=== PATIENT | male | born 1960 | race Caucasian/White ===

== ENCOUNTER 2021-08-17 07:57 | Outpatient (CLI) | payer OTHER, SELFPAY | END 2021-08-17 07:58 | disposition home or self-care (01) | LOC: ANHSURGERY 08:01 | PROVIDERS: PCP Family Medicine; Visit Provider Surgery | DX: K42.0 Umbilical hernia with obstruction, without gangrene (principal); Z01.818 Encounter for other preprocedural examination | CPT/HCPCS: 36415; 86850; 86900; 86901 ==

== ENCOUNTER 2021-08-18 00:06 | Day surgery (SDC) | payer OTHER, SELFPAY ==
[2021-05-13 11:42] VITALS: BMI 31.4
--- NOTE | 2021-05-13 11:57 | PC.NURSE ---
Report to the Outpatient Waiting Room, entrance under the green pavilion located off [facility], at time 0600 on date 05/20/21. OR Time: 0730. - You will be asked a series of questions to screen for COVID 19 for your protection. - A mask is required within the hospital. - No visitors are allowed at this time. Preoperative COVID Testing Requirements: No COVID Test needed if: (proof is required; if not received patient will have Rapid Test prior to entry) - Patient has received COVID Vaccine at least 14 days prior to procedure date or - Patient has positive COVID test result within last 90 days of surgery date. COVID Test needed if above criteria is not met Patients may have clear liquids (water, carbonated beverages, clear teas, apple juice) until 3 hours prior to surgery with a maximum of 20 ounces. - No food from midnight until time of surgery Take the following medications with a SIP of water the morning of surgery: NONE Medications to discontinue per physician: NAPROXEN Date to take last dose: PER DR. AGUILAR Please no make-up, nail macedonian, hairspray, perfume, deodorant, or body powder the day of surgery. No jewelry (including any body piercings) or valuables the day of surgery, leave them at home. Please take a shower or bath the night before, or the morning of, surgery with an antibacterial soap. Wear comfortable, loose fitting clothing. HIBICLENS SHOWER - Jewelry must be removed prior to entering the operating room. Rings and piercings that are not removed may be cut off. - The hospital will not accept responsibility for valuables. - Please leave all valuables, including medications, at home the day of surgery. If you are going home after surgery, a licensed pedicab driver must drive you home. - NO public transportation without another adult. - We recommend that an adult stay with you for 24 hours following discharge. - We also recommend that you do not drive, make important decision, drink alcoholic beverages, or take any drugs that were not prescribed by your health care provider for at least 24 hours after your discharge time. Follow any additional instructions given to you from your surgeon. Telephone instructions given to JULIO MACIEL and asked if any additional questions and then verbalized understanding. Patient advised to call surgeon office or pre surgery nurse liaison [phone] if any additional questions.
[2021-08-12 14:47] VITALS: BMI 33.5
--- NOTE | 2021-08-12 14:56 | PC.NURSE ---
Addendum entered by Araceli Wooten RN 08/12/21 15:01: patient instructed to take a shower with hibicleluciano Original Note: Report to the Outpatient Waiting Room, entrance under the green pavilion located off [address], at time _630_ on date _08/18/2021___. OR Time: __830__. - You and your visitor will be asked a series of questions to screen for COVID 19 for your protection. - Only one visitor is allowed at this time. - The patient visitor is requested to leave or wait in car when not with patient. - A mask is required within the hospital. Patients may have clear liquids (water, carbonated beverages, clear teas, apple juice) until 3 hours prior to surgery with a maximum of 20 ounces. - No food from midnight until time of surgery Take the following medications with a SIP of water the morning of surgery: metoprolol Medications to discontinue per physician N/A Date to take last dose__N/A Please no make-up, nail french, hairspray, perfume, deodorant, or body powder the day of surgery. No jewelry (including any body piercings) or valuables the day of surgery, leave them at home. Please take a shower or bath the night before, or the morning of, surgery with an antibacterial soap. Wear comfortable, loose fitting clothing. Children are encouraged to wear pajamas. - Jewelry must be removed prior to entering the operating room. Rings and piercings that are not removed may be cut off. - The hospital will not accept responsibility for valuables. - Please leave all valuables, including medications, at home the day of surgery. If you are going home after surgery, a licensed bottom hoop driver must drive you home. - NO public transportation without another adult. - We recommend that an adult stay with you for 24 hours following discharge. - We also recommend that you do not drive, make important decision, drink alcoholic beverages, or take any drugs that were not prescribed by your health care provider for at least 24 hours after your discharge time. For Pediatric surgeries, we recommend two adults accompany the child home (only one inside the building at this time). Follow any additional instructions given to you from your surgeon. If you or anyone in your household have experienced Covid symptoms in the past week, please notify your surgeon or the nurse liaison at the phone number below for possible testing. Telephone instructions given to patient Efren and asked if any additional questions and then verbalized understanding. Patient advised to call surgeon office or pre surgery nurse liaison [phone] if any additional questions.
[2021-08-18] VITALS (12 sets, daily range): BP systolic 116–140; BP diastolic 68–81; PULSE 51–65; RESP 14–20; TEMP 36.1–36.4; O2SAT 94–99
[2021-08-18] MEDS: ACETAMINOPHEN 500 MG TABLET 1000 MG PO (07:11)
--- NOTE | 2021-08-18 07:13 | PM.IMHP ---
H&P: HPI History of Present Illness Date/Time: 08/18/21 07:13 Chief Complaint: Umbilical hernia Narrative: 61 yo man presents for umbilical hernia repair. He denies any changes since last seen in office. Review of Systems Review of Systems: All systems reviewed & are unremarkable except as noted in HPI and below Constitutional: Constitutional: Denies chills, Denies fever(s), Denies headache(s) and Denies weight loss Eyes: Eyes: Denies change in vision ENT: Denies dizziness, Denies headache(s), Denies neck mass and Denies throat swelling Cardiovascular: Cardiovascular: Denies chest pain, Denies lightheadedness and Denies dyspnea Respiratory: Respiratory: Denies cough, Denies dyspnea and Denies wheezing Gastrointestinal: Gastrointestinal: Denies abdominal pain, Denies change in bowel habits, Denies nausea and Denies vomiting Genitourinary: Genitourinary: Denies hematuria and Denies dysuria Musculoskeletal: Musculoskeletal: Reports as per HPI Integumentary/Breasts: Skin/Breast: Reports as per HPI Neurologic: Denies dizziness and Denies headache(s) Allergic/Immunologic: Allergic/Immunologic: Denies throat swelling and Denies wheezing [facility] Past Medical History Medical History (Updated 08/17/21 @ 14:17 by Vern Jackman MD) Arthritis of both hands Chest pain on exertion cardiac cath; normal left ventricular function; 63% Mixed hyperlipidemia Obstructive sleep apnea, adult screening Surgical History Surgical History (Updated 07/06/21 @ 11:10 by Salina Gregorio CMA) History of cardiac cath Family History Family History Father Diabetes mellitus Family history of cardiovascular disease Malignant neoplasm of prostate Family history of coronary artery disease Sibling Diabetes mellitus Family history of cardiovascular disease Mother Family history of dementia Social History Social History Smoking status: Never smoker Alcohol intake: current Drinks per week: 10 Alcohol use details: Daily [place] drinker. Reports 2 shots a day. Substance use: never Substance use type: does not use Living arrangements: with family Spiritual care concerns: No Meds Home Medications and Allergies Home Medications Medication Instructions Recorded Confirmed Type fluticasone propionate 50 2 spray NASAL DAILY PRN 08/17/19 08/18/21 History mcg/actuation nasal spray,suspension zolpidem 5 mg PO HS PRN 05/13/21 08/18/21 History albuterol sulfate 90 mcg/actuation 2 inh INHALATION Q4H PRN #6.7 g 07/21/21 08/18/21 Rx aerosol inhaler atorvastatin 20 mg PO DAILY 08/12/21 08/18/21 History fluticasone propion-salmeterol 2 inh INHALATION DAILY 08/12/21 08/18/21 History [Advair Diskus] metoprolol succinate 50 mg PO DAILY 08/12/21 08/18/21 History Allergies Allergy/AdvReac Type Severity Reaction Status Date / Time No Known Allergies Allergy Verified 08/18/21 06:46 Exam Const: General: no acute distress and alert Orientation/consciousness: patient oriented x3 HENMT: Head: normocephalic and atraumatic Ears: hearing grossly normal bilaterally General nose exam: Normal nares present Mouth: Yes Normal oral and palatal mucosa present Eyes: Periorbital: periorbital findings normal Sclera: sclerae normal EOM: EOMs intact bilaterally Neck: Neck: normal visual inspection, no lymphadenopathy and trachea midline Chest: Chest palpation & inspection: normal inspection of the chest Resp: Effort & Inspection: normal respiratory effort Auscultation: clear to auscultation bilaterally Cardio: Jugular venous distension: no JVD Rate: regular rate Rhythm: regular rhythm Heart sounds: S1 normal heart sound present and S2 normal heart sound present Peripheral pulses: Peripheral pulses 2+ throughout GI: Inspection: normal to inspection GI Palp: Yes Soft to palpa
[2021-08-18] MEDS: LACTATED RINGERS 1,000 ML 30 ML IV CONT ×2 (07:15→10:23)
--- NOTE | 2021-08-18 07:15 | WPDHPUPDATE1 ---
History and Physical Update Update Date/Time: 08/18/21 07:15 History and Physical has been reviewed, including an updated exam of the patient. There are NO changes in the patient's condition. Risks, benefits, and alternatives have been discussed and questions answered. Patient agrees to proceed with procedure.
[2021-08-18] MEDS: KETOROLAC 15 MG/ML VIAL (*BKC) IV PUSH (07:21)
--- NOTE | 2021-08-18 08:05 | WPDANESEPPF ---
Anes - Initial Pre Proc Eval Procedure: Operation Date: 08/18/21 08:30 Proposed Procedures p Laparoscopic Umbilical Hernia Repair with Mesh, Davinci Assisted - Rip Franco DO Date/Time: 08/18/21 08:05 Surgeon: Rip Franco DO Pre Op Diagnosis: umbilical hernia Patient Data Age: 61 Gender: M Height: 1.8 m Weight: 109 kg Last Vital Signs Temp 97.6 F 08/18/21 07:28 Pulse 64 08/18/21 07:28 Resp 16 08/18/21 07:28 BP 140/77 08/18/21 07:28 Pulse Ox 98 08/18/21 07:28 Allergies Allergy/AdvReac Type Severity Reaction Status Date / Time No Known Allergies Allergy Verified 08/18/21 06:46 Home Medications Medication Instructions Recorded Confirmed Type fluticasone propionate 50 2 spray NASAL DAILY PRN 08/17/19 08/18/21 History mcg/actuation nasal spray,suspension zolpidem 5 mg PO HS PRN 05/13/21 08/18/21 History albuterol sulfate 90 mcg/actuation 2 inh INHALATION Q4H PRN #6.7 g 07/21/21 08/18/21 Rx aerosol inhaler atorvastatin 20 mg PO DAILY 08/12/21 08/18/21 History fluticasone propion-salmeterol 2 inh INHALATION DAILY 08/12/21 08/18/21 History [Advair Diskus] metoprolol succinate 50 mg PO DAILY 08/12/21 08/18/21 History Patient hx anesthesia problems: none Family hx anesthesia problems: none Results Review: All pre-operative results and documents have been reviewed as part of the pre-operative evaluation. [facility] Past Medical History Medical History (Updated 08/17/21 @ 14:17 by Vern Jackman MD) Arthritis of both hands Chest pain on exertion cardiac cath; normal left ventricular function; 63% Mixed hyperlipidemia Obstructive sleep apnea, adult screening Surgical History Surgical History (Updated 07/06/21 @ 11:10 by Salina Gregorio CMA) History of cardiac cath Family History Family History Father Diabetes mellitus Family history of cardiovascular disease Malignant neoplasm of prostate Family history of coronary artery disease Sibling Diabetes mellitus Family history of cardiovascular disease Mother Family history of dementia Social History Social History Smoking status: Never smoker Alcohol intake: current Drinks per week: 10 Alcohol use details: Daily [place] drinker. Reports 2 shots a day. Substance use: never Substance use type: does not use Living arrangements: with family Spiritual care concerns: No Anes - Eval Final PreProcedure Day of Procedure 08/18/21 08:05 Patient weight: obese Heart: regular rate and rhythm Lungs: clear to auscultation Airway: Mallampati scale class III Neurological: alert and oriented Last oral intake: >/= 8 hours ASA classification: III Emergent: no Anesthetic plan: proceed Anesthesia type and monitoring: general ETT and standard monitoring Results Review: All pre-operative results and documents have been reviewed as part of the pre-operative evaluation. Informed Consent: The patient's anesthetic plan and its attendant risks and benefits were discussed with the patient/family/POA. Questions were solicited and answers provided to the satisfaction of the patient/family/POA.
[2021-08-18] MEDS: ceFAZolin 2 GM/D5W 50 ML 2 GM/50 ML BAG IVPB (08:25)
--- NOTE | 2021-08-18 10:08 | W.PM.PROC2 ---
Procedure Note - Detailed Date of Procedure 08/18/21 Pre-op Diagnosis umbilical hernia Post-op Diagnosis Same Procedure Performed Laparoscopic umbilical Hernia Repair with Mesh, da Gadiel assisted Surgeon Rip Franco, Anesthesia General and Local (Exparel) Indications This is a 61-year-old man who presented with an umbilical hernia. He had noticed this several years ago and it had gradually become larger with time. He does notice some discomfort with activity. He was found to have a 1-2 cm reducible umbilical hernia on exam. Discussions were made with the patient about treatment options and decision was made to proceed with robotic assisted laparoscopic umbilical hernia repair with mesh. Findings Laparoscopic umbilical hernia repair was performed. A robotic transabdominal preperitoneal (rTAPP) approach was utilized. The patient was found to have a 1 cm umbilical hernia containing preperitoneal fat. A preperitoneal plane was created wide enough for mesh placement and the hernia sac and preperitoneal fat was reduced. The hernia defect was closed using 0 Stratafix running absorbable suture. A 10 cm x [address] mesh was then placed within the preperitoneal pocket and secured to the abdominal wall at the 4 corners using 3-0 Vicryl simple interrupted sutures. The peritoneum was then closed using 3-0 V lock running absorbable suture. No specimens were obtained for pathology. Description of Procedure Procedure as well as risks, benefits, and alternatives were discussed with the patient. Written consent was obtained and placed in chart prior to procedure. Patient was brought back to surgical suite. He was placed supine on operating table. Time-out was done to confirm patient and procedure. He was then intubated by the anesthesia department. A bump was placed under his left hip, and the bed was flexed slightly to extend the space between his costal margin and iliac crest. His abdomen was prepped and draped in sterile fashion using chlorhexidine prep. A 5 millimeter incision was made in the left upper quadrant, and a 5 millimeter Optiview trocar was advanced through the abdominal layers under direct visualization. Once inside the abdominal cavity, carbon dioxide insufflation was used to create a pneumoperitoneum. His abdomen was inspected. An 8 millimeter incision was made in the left lower quadrant, and an 8 millimeter robotic trocar was placed under direct visualization. Another 8 millimeter incision was made in the left lateral abdomen, and an 8 millimeter robotic trocar was placed under direct visualization. Exparel was infiltrated along the lateral abdominal ontiveros to perform a transversus abdominis plane block bilaterally. The 5 millimeter port was removed, the incision was extended to 12 millimeters, and a 12 millimeter air seal port was placed under direct visualization. A Bryson-Whaley cone was also used to place an 0-Vicryl simple interrupted suture at this trocar site. The robotic arms were brought up to the patient's bedside and secured to the ports. The camera and instruments were inserted, and I then moved over to the robotic console and took control of the camera and instruments. After careful thorough inspection of the abdominal cavity, I began my dissection at the hernia. A preperitoneal plane was dissected on the left lateral abdominal wall. This was continued medially until the hernia defect was encountered and then the hernia sac and preperitoneal fat was reduced. I then continued the dissection in the preperitoneal plane along the right lateral abdomen. I then measured the hernia size. The hernia measured 1 cm. The fascia was closed using an 0-Stratafix running suture in a vertical fashion. A Ventralight ST 15 cm x 10 cm mesh was then placed within the preperitoneal pocket. This was oriented vertically with the mesh centered on the hernia defect. The mesh was then secured at the 4 corners using 3-0 Vicryl simpl
[2021-08-18] MEDS: oxyCODONE HCL (*CRX) 5 MG TAB IR PO (11:55)
== END 2021-08-18 13:50 | disposition home or self-care (01) ==
PROVIDERS: PCP Family Medicine; Visit Provider Surgery
PROC: (CPT 49652; principal; 2021-08-18 08:30)
DX: K42.9 Umbilical hernia without obstruction or gangrene (principal); Z79.51 Long term (current) use of inhaled steroids; M19.90 Unspecified osteoarthritis, unspecified site; G47.33 Obstructive sleep apnea (adult) (pediatric); E78.2 Mixed hyperlipidemia; E66.9 Obesity, unspecified; Z68.33 Body mass index [BMI] 33.0-33.9, adult
CPT/HCPCS: 49652; S2900; 36415; 86850; 86900; 86901; A9270; C1781; C9290; J0330; J0690; J1100; J1170; J1885; J2250; J2405; J2710; J3010; J7120

== ENCOUNTER 2024-02-13 01:30 | Day surgery (SDC) | payer MEDICARE, SELFPAY ==
[2024-02-01 08:35] VITALS: BMI 32.4
[2024-02-13 09:34] VITALS: BP 141/92; PULSE 62; RESP 18; TEMP 36.3; O2SAT 99; BMI 32.1
[2024-02-13] MEDS: LACTATED RINGERS 1,000 ML 150 ML IV CONT (09:36)
--- NOTE | 2024-02-13 09:43 | WPDANESEPPF ---
Anes - Initial Pre Proc Eval Procedure: Operation Date: 02/13/24 10:30 Proposed Procedures p Colonoscopy - Maxx Roman MD Date/Time: 02/13/24 09:43 Surgeon: Maxx Roman MD Pre Op Diagnosis: Pers. hx. of colon polyps Patient Data Age: 63 Gender: M Height: 1.8 m Weight: 104.7 kg Last Vital Signs Temp 36.3 C L 02/13/24 09:34 Pulse 62 02/13/24 09:34 Resp 18 02/13/24 09:34 BP 141/92 H 02/13/24 09:34 Pulse Ox 99 02/13/24 09:34 O2 Del Method Room Air 02/13/24 09:34 Allergies Allergy/AdvReac Type Severity Reaction Status Date / Time No Known Allergies Allergy Verified 02/13/24 09:33 Home Medications Medication Instructions Recorded Confirmed Type albuterol sulfate 90 mcg/actuation 2 inh inhalation Q4H PRN shortness 07/21/21 02/13/24 Rx aerosol inhaler (Ventolin HFA) of breath or wheezing #6.7 grams aspirin 81 mg tablet,delayed 81 mg PO DAILY 12/01/21 02/13/24 History release metoprolol succinate 50 mg 50 mg PO DAILY 03/02/22 02/13/24 History tablet,extended release 24 hr atorvastatin 80 mg tablet 80 mg PO DAILY 03/03/22 02/13/24 History CPAP Supplies #1 ea 10/21/22 12/29/23 Rx zolpidem 10 mg tablet 10 mg PO QHS PRN sleep #30 tabs 04/12/23 02/13/24 Rx ezetimibe 10 mg tablet (Zetia) 10 mg PO DAILY 06/21/23 02/13/24 History Travel CPAP #1 ea 06/27/23 12/29/23 Rx CPAP Pressure Change #1 ea 12/29/23 12/29/23 Rx Patient hx anesthesia problems: none Family hx anesthesia problems: none Results Review: All pre-operative results and documents have been reviewed as part of the pre-operative evaluation. [facility] Past Medical History Medical History (Updated 02/13/24 @ 09:43 by Darius Dorado MD) Arthritis of both hands Chest pain on exertion cardiac cath; normal left ventricular function; 63% Mixed hyperlipidemia Obesity, Class I, BMI 30-34.9 Obstructive sleep apnea, adult screening Tear of medial meniscus of left knee Surgical History Surgical History H/O umbilical hernia repair w mesh davinci assisted 08/18/21 History of cardiac cath Family History Family History Father Diabetes mellitus Family history of cardiovascular disease Malignant neoplasm of prostate Family history of coronary artery disease Sibling Diabetes mellitus Family history of cardiovascular disease Mother Family history of dementia Social History Social History Smoking status: Never smoker Alcohol intake: current Drinks per week: 10 Alcohol use details: Daily [place] drinker. Reports 2 shots a day. Substance use: never Substance use type: does not use Lack of Transportation: No Lack of Food: Never True Current Housing: I Have Housing Concerned About Future Housing: No Difficulty Paying Gas/Electric Bills: No Difficulty Paying for Meds: No Currently Unemployed: No Education: Bachelor's Degree Difficulty w/ Childcare or Family Care: No Living arrangements: with family Spiritual care concerns: No Anes - Eval Final PreProcedure Day of Procedure 02/13/24 09:43 Patient weight: obese Heart: regular rate and rhythm Lungs: clear to auscultation Airway: Mallampati scale class II Neurological: alert and oriented Last oral intake: >/= 8 hours ASA classification: III Emergent: no Anesthetic plan: proceed Anesthesia type and monitoring: general GIVS and standard monitoring Results Review: All pre-operative results and documents have been reviewed as part of the pre-operative evaluation. Informed Consent: The patient's anesthetic plan and its attendant risks and benefits were discussed with the patient/family/POA. Questions were solicited and answers provided to the satisfaction of the patient/family/POA.
--- NOTE | 2024-02-13 09:59 | P.HP_ITS ---
History of Present Illness History of Present Illness Consent: Risks, benefits, and alternatives have been discussed and questions answered. Patient agrees to proceed with procedure. Chief complaint: Pers. hx. of colon polyps Narrative: Efren Novoa is a 63 year old male with colon polyp in 2019 Review of Systems Review of Systems: All systems reviewed & are unremarkable except as noted in HPI and below PMFSH Past Medical History Medical History (Updated 02/13/24 @ 10:02 by Maxx Roman MD) Arthritis of both hands Chest pain on exertion cardiac cath; normal left ventricular function; 63% Colon polyp Mixed hyperlipidemia Obesity, Class I, BMI 30-34.9 Obstructive sleep apnea, adult screening Tear of medial meniscus of left knee Surgical History Surgical History H/O umbilical hernia repair w mesh davinci assisted 08/18/21 History of cardiac cath Family History Family History Father Diabetes mellitus Family history of cardiovascular disease Malignant neoplasm of prostate Family history of coronary artery disease Sibling Diabetes mellitus Family history of cardiovascular disease Mother Family history of dementia Social History Social History Smoking status: Never smoker Alcohol intake: current Drinks per week: 10 Alcohol use details: Daily [place] drinker. Reports 2 shots a day. Substance use: never Substance use type: does not use Lack of Transportation: No Lack of Food: Never True Current Housing: I Have Housing Concerned About Future Housing: No Difficulty Paying Gas/Electric Bills: No Difficulty Paying for Meds: No Currently Unemployed: No Education: Bachelor's Degree Difficulty w/ Childcare or Family Care: No Living arrangements: with family Spiritual care concerns: No Meds Home Medications and Allergies Home Medications Medication Instructions Recorded Confirmed Type albuterol sulfate 90 mcg/actuation 2 inh inhalation Q4H PRN shortness 07/21/21 02/13/24 Rx aerosol inhaler (Ventolin HFA) of breath or wheezing #6.7 grams aspirin 81 mg tablet,delayed 81 mg PO DAILY 12/01/21 02/13/24 History release metoprolol succinate 50 mg 50 mg PO DAILY 03/02/22 02/13/24 History tablet,extended release 24 hr atorvastatin 80 mg tablet 80 mg PO DAILY 03/03/22 02/13/24 History CPAP Supplies #1 ea 10/21/22 12/29/23 Rx zolpidem 10 mg tablet 10 mg PO QHS PRN sleep #30 tabs 04/12/23 02/13/24 Rx ezetimibe 10 mg tablet (Zetia) 10 mg PO DAILY 06/21/23 02/13/24 History Travel CPAP #1 ea 06/27/23 12/29/23 Rx CPAP Pressure Change #1 ea 12/29/23 12/29/23 Rx Allergies Allergy/AdvReac Type Severity Reaction Status Date / Time No Known Allergies Allergy Verified 02/13/24 09:33 Vital Signs Vital Signs - 24 hr 02/13/24 09:34 Temperature 97.4 F L Pulse Rate 62 Respiratory Rate 18 Blood Pressure 141/92 H Pulse Oximetry 99 Oxygen Delivery Room Air Exam Const: General: comfortable and no acute distress HENMT: Face/Nose/Sinus: Normal nares present Eyes: General: appearance normal, both eyes and all related structures Neck: Neck: no JVD Resp: Auscultation: clear to auscultation bilaterally Cardio: Rate: regular rate Rhythm: regular rhythm GI: Inspection: non-distended GI Palp: Yes Soft to palpation Skin: General skin exam: normal color Neuro: General: gait normal Speech: normal speech Extrem: General: normal to inspection Psych: Mental Status: mental status grossly normal Assessment and Plan Assessment and plan (1) Colon polyp: Code(s): K63.5 - Polyp of colon Status: Acute Assessment and Plan: colonoscopy
[2024-02-13 10:17] VITALS: BP 111/74; PULSE 73; RESP 18; O2SAT 97
[2024-02-13 10:27] VITALS: BP 106/72; PULSE 68; RESP 18; O2SAT 97
[2024-02-13 10:37] VITALS: BP 136/83; PULSE 64; RESP 19; O2SAT 100
== END 2024-02-13 10:47 | disposition home or self-care (01) ==
PROVIDERS: PCP Family Medicine; Visit Provider Internal Medicine Gastroenterology
PROC: 0DJD8ZZ Inspection of Lower Intestinal Tract, Via Natural or Artificial Opening Endoscopic (ICD-10-PCS; CPT 45378; principal; 2024-02-13 10:30)
DX: Z12.11 Encounter for screening for malignant neoplasm of colon (principal); Z86.0100 Personal history of colon polyps, unspecified; G47.33 Obstructive sleep apnea (adult) (pediatric); E78.2 Mixed hyperlipidemia; E66.9 Obesity, unspecified; Z68.32 Body mass index [BMI] 32.0-32.9, adult; Z79.82 Long term (current) use of aspirin; Z79.51 Long term (current) use of inhaled steroids
CPT/HCPCS: G0105; J2704; J7120

== ENCOUNTER 2024-05-09 13:43 | Emergency (ER) | payer MEDICARE, SELFPAY ==
--- NOTE | ~2024-05-09 | XR_ITS ---
XR wrist RT min 3V 05/09/2024 14:16 Indication: Right wrist pain after fall Procedure: 4 views right wrist Comparison: No prior studies for comparison. Findings: No fracture, subluxation or dislocation. No significant soft tissue abnormality. No foreign bodies. 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 Impression: 1: No acute bone or joint abnormality. Reviewed, dictated and finalized at location A. CAL THERAPIST Impression: 1: No acute bone or joint abnormality.
[2024-05-09 14:02] VITALS: BP 117/72; PULSE 65; RESP 16; TEMP 36.3; O2SAT 97
--- NOTE | 2024-05-09 14:20 | ED.UPPEXIN ---
HPI - Extremity Injury (Upper) General Chief Complaint: Extremity Injury, Upper Stated Complaint: INJURED R WRIST Time Seen by Provider: 05/09/24 14:10 Source: patient Mode of arrival: ambulatory Limitations: no limitations History of Present Illness HPI narrative: Efren is a 64-year-old male patient presenting to the clinic today with complaints of a right wrist injury. 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 Is having pain to the right wrist. No obvious deformity noted Related Data Home Medications ?Medication ?Instructions ?Recorded ?Confirmed ?Last Taken ?Type aspirin 81 mg tablet,delayed 81 mg PO DAILY 12/01/21 02/13/24 02/12/24 History release metoprolol succinate 50 mg 50 mg PO DAILY 03/02/22 02/13/24 02/12/24 History tablet,extended release 24 hr atorvastatin 80 mg tablet 80 mg PO DAILY 03/03/22 02/13/24 02/12/24 History ezetimibe 10 mg tablet (Zetia) 10 mg PO DAILY 06/21/23 02/13/24 02/12/24 History Allergies Allergy/AdvReac Type Severity Reaction Status Date / Time No Known Allergies Allergy Verified 02/13/24 09:33 Review of Systems Review of Systems: Pertinent positives per HPI. Patient denies any fever, chills, rash, headache, visual changes, dizziness, cough, runny nose, sore throat, shortness of breath, chest pain, palpitations, nausea, vomiting, diarrhea, constipation, abdominal pain, or any urinary issues. [facility] Past Medical History Medical History Colon polyp Tear of medial meniscus of left knee Obesity, Class I, BMI 30-34.9 Chest pain on exertion cardiac cath; normal left ventricular function; 63% Obstructive sleep apnea, adult screening Arthritis of both hands Mixed hyperlipidemia Surgical History Surgical History H/O umbilical hernia repair w mesh davinci assisted 08/18/21 History of cardiac cath Family History Family History Father Diabetes mellitus Family history of cardiovascular disease Malignant neoplasm of prostate Family history of coronary artery disease Sibling Diabetes mellitus Family history of cardiovascular disease Mother Family history of dementia Social History Social History Smoking status: Never smoker Alcohol intake: current Drinks per week: 10 Alcohol use details: Daily Beauregard drinker. Reports 2 shots a day. Substance use: never Substance use type: does not use Lack of Transportation: No Lack of Food: Never True Current Housing: I Have Housing Concerned About Future Housing: No Difficulty Paying Gas/Electric Bills: No Difficulty Paying for Meds: No Currently Unemployed: No Education: Bachelor's Degree Difficulty w/ Childcare or Family Care: No Living arrangements: with family Spiritual care concerns: No Comments At the time of my signature, I reviewed and agree with the nursing past medical, surgical, social, and family history. There is no relevant family history pertinent to the patient complaint. Exam Narrative: General: Well-developed, well nourished, in no apparent distress Head: Normocephalic, atraumatic. Cardio: Regular rate and rhythm, s1 and s2 normal, no murmur appreciated. Resp: Clear to auscultation bilaterally, no rhonchi, rales, wheezing or rubs. Musculoskeletal: No deformity, tender to palpation over the dorsal wrist, pain with hyper extension and flexion of the right wrist, no pain with ulnar or radial deviation, grossly normal range of motion, muscle strength strong and equal, peripheral pulse strong, no edema, no cyanosis, normal gait and station Course Course Emergency Course: Portions of this record may have been created with voice recognition software. Level of Care: Express Care Visit Vital Signs Vital signs: Vital Signs Temperature 36.3 C L 05/09/24 14:02 Pulse Rate 65 05/09/24 14:02 Respiratory Rate 16 05/09/24 14:02 Blood Pressure 117/72 05/09/24 14:02 Pulse Oximetry 97 05/09/24 14:02 Temperature 36.3 C L 05/09/24 14:02 Pulse Rate 65 05/09/24 14:02 Respiratory Rate 16 05/09/24 14:02 Blood Pressure 117/72 05/09/24 14:02 Pulse Oximetry 97 05/09/24 14:02 Vital signs reviewed MDM - Extremity Injury (Upper) MDM Narrative Medical decision making narrative: At the time of visit patient is resting comfortably on the exam table. Patient appears to be nontoxic. Diagnostics: X-rays negative for any sign of fracture or malalignment of the right wrist. Plan: I suspect patient has a right wrist sprain. Evan wrap was applied. Supportive measures were discussed with the patient and they voiced understanding discharge instructions and agrees to treatment plan. Return precautions reviewed Differential Diagnosis Differential diagnosis: Likely sprain and strain of wrist and fracture of wrist Imaging Data Radiologist's impression: ITS Impressions Wrist X-Ray 05/09/24 14:20 Impression: 1: No acute bone or joint abnormality. Discharge Plan Discharge Clinical Impression: Right wrist sprain Qualifiers: Encounter type: initial encounter Qualified Code(s): S63.501A - Unspecified sprain of right wrist, initial encounter Patient Disposition: Home, Self-Care Condition: Stable Instructions: Antibiotic Form, Wrist Sprain (ED) Additional Instructions: X-rays negative for any sign of fracture or malalignment. Rest, ice, elevate, and wear evan wrap as directed Tylenol/motrin for pain as discussed. Follow up with your PCP if symptoms persist more than 1 week. Patient Language: Luxembourgish Prescriptions: No Action (DME) CPAP Supplies See Rx Instructions .Route .MEDSUPPLY Qty: 1 0RF Rx Instructions: Rx: Chin strap Dx: G47.33 Physician: Dr. Leti Corona DO [facility]zet[facility] [Zetia] 10 mg tablet 10 mg PO DAILY (DME) CPAP Pressure Change See Rx Instructions .Route .MEDSUPPLY Qty: 1 0RF Rx Instructions: Rx: Change pressure settings from 6-16 cm H2O to 6-18 cm H2O. Decrease EPR from 3 to 2. I already changed pressure settings wirelessly through [employer] Dx: G47.33 Physician: Dr. Leti Corona DO DME: [employer] aspirin 81 mg tablet,delayed release (DR/EC) 81 mg PO DAILY metoprolol succinate 50 mg tablet extended release 24 hr 50 mg PO DAILY albuterol sulfate [Ventolin HFA] 90 mcg/actuation HFA aerosol inhaler 2 inh inhalation Q4H PRN (Reason: shortness of breath or wheezing) Qty: 6.7 0RF atorvastatin 80 mg tablet 80 mg PO DAILY zolpidem 10 mg tablet 10 mg PO QHS PRN (Reason: sleep) Qty: 30 0RF (DME) Travel CPAP See Rx Instructions .Route .MEDSUPPLY Qty: 1 0RF Rx Instructions: Rx: [employer]med [employer] Travel CPAP 6-16 cm H2O with EPR of 3 Dx: G47.33 Follow-up/Referrals: Angelo Jackson MD [Primary Care Provider] - Time of Disposition: 14:27 Quality NIHSS Nursing Documentation ED NIHSS nursing documentation: reviewed/agree
== END 2024-05-09 14:29 | disposition home or self-care (01) ==
PROVIDERS: Emergency Provider Nurse Practitioner Family; PCP Family Medicine
DX: S63.501A Unspecified sprain of right wrist, initial encounter (principal); W19.XXXA Unspecified fall, initial encounter; E78.2 Mixed hyperlipidemia; M19.042 Primary osteoarthritis, left hand; M19.041 Primary osteoarthritis, right hand; E66.9 Obesity, unspecified; Z79.82 Long term (current) use of aspirin; Z68.32 Body mass index [BMI] 32.0-32.9, adult
CPT/HCPCS: 73110; 99213; G0463

== ENCOUNTER 2024-08-03 12:42 | Outpatient (CLI) | payer MEDICARE, SELFPAY ==
--- OUTSIDE RECORDS SUMMARY | 2024-08-03 12:47 | XMS_ITS | Referral Summary ---
Author Organization [facility] Medical O [facility] [address] [place] [phone] Care Team Providers Care Maintenance Shop Laborer Name Role Phone Angelo Jackson MD Primary Care Provider [phone] Encounters Date Type Department Care Team Description 06/14/2024 Orders Only JARVIS OS HAND/WRIST Scanning, Provider 06/14/2024 9:59 AM ADMINISTRATIVE PROFESSIONAL - 06/14/2024 11:59 PM ADMINISTRATIVE PROFESSIONAL Hospital Encounter [facility] ([facility]) [address] [place] [address] Discharge Disposition: Discharge to home or self care 06/14/2024 9:10 AM ADMINISTRATIVE PROFESSIONAL Office Visit [facility] Orthopaedic Surgery [address] [facility] Medical Office Building [address] [place] [phone] Arnoldo Bonilla MD De Quervain's syndrome (tenosynovitis) (Primary Dx) from Last 3 Months Allergies Active Allergy Reactions Criticality Noted Date Comments 1 Alpha-Gal Unknown Dairy Tolerance (Mmgaztkye-Tbkcs-0,3- Galactose) Edema,Hives,Itching,R zak,Redness,Swelling, Swollen tongue High 11/09/2021 Glycerin Swelling High 07/14/2022 Itching and welts when exposed to glycerin Medications aspirin 81 mg tablet Active atorvastatin (LIPITOR) 80 mg tablet Active ezetimibe (ZETIA) 10 mg tablet Take 1 tablet (10 mg total) by mouth daily 04/15/2023 Active metoprolol XL (TOPROL-XL) 50 mg extended release tablet 04/16/2023 Acti ve Active Problems Problem Noted Date Diagnosed Date Hyperlipidemia 06/14/2024 HTN (hypertension) 06/14/2024 Angioedema 06/14/2024 Left knee pain 12/11/2021 Sensorineural hearing loss, asymmetrical 018 Tinnitus, bilateral 03/17/2018 Social History Tobacco Use Types Packs/Day Years Used Date Smoking Tobacco: Never Sex and Gender Information Value Date Recorded Sex Assigned at Not on file Legal Sex Male 3:33 AM ADMINISTRATIVE PROFESSIONAL Gender Identity Male 05/20/2020 4:24 PM ADMINISTRATIVE PROFESSIONAL Sexual Orientation Not on file Last Filed Vital Signs Vital Sign Reading Time Taken Comments Blood Pressure - - Pulse - - Temperature 36.5 C (97.7 F) 10/01/2019 2:05 PM CDT Respiratory Rate - - Oxygen Saturation - - Inhaled Oxygen Concentration - - Weight 90.7 kg (200 lb) 12/11/2021 11:03 AM CDT Height 180.3 cm (5' 11 ) 12/11/2021 11:03 AM CDT Body Mass Index 27.89 12/11/2021 11:03 AM CDT Plan of Treatment Not on file Procedures Procedure Name Priority Date/Time Associated Diagnosis Comments XR TRANSFER OF OUTSIDE FILMS Routine 06/14/2024 9:59 AM ADMINISTRATIVE PROFESSIONAL ME INJECTION 1 TENDON SHEATH/LIGAMENT APONEUROSIS Routine 06/14/2024 9:10 AM ADMINISTRATIVE PROFESSIONAL De Quervain's syndrome (tenosynovitis) SCAN - RADIOLOGY/IMAGING 06/14/2024 PSA SCREEN Routine 05/01/2024 9:53 AM ADMINISTRATIVE PROFESSIONAL Family hx of prostate cancer from Last 3 Months or Most Recently Relevant to Health Maintenance Results * XR Outside Reference (06/14/2024 9:59 AM ADMINISTRATIVE PROFESSIONAL) Impressions RAD_PACS_[facility] - 06/14/2024 9:59 AM ADMINISTRATIVE PROFESSIONAL These images are for Reference purposes only and have not been reviewed by [facility] Radiology. There will be no report generated by a [facility] Radiologist. Narrative RAD_PACS_[facility] - 06/14/2024 9:59 AM ADMINISTRATIVE PROFESSIONAL EXAMINATION: Images For Reference Purposes Only us Arnoldo Bonilla MD IMG XR PROCEDURES Final R esult RAD_PACS_[facility] * ME INJECTION 1 TENDON SHEATH/LIGAMENT APONEUROSIS (06/14/2024 9:10 AM ADMINISTRATIVE PROFESSIONAL) Narrative Arnoldo Bonilla MD - 06/14/2024 9:10 AM ADMINISTRATIVE PROFESSIONAL Arnoldo Bonilla MD 06/14/2024 1:13 PM De Quervain's injection: R extensor compartment 1 Performed by: Arnoldo Bonilla MD Authorized by: Arnoldo Bonilla MD Procedure Details: Condition: de Quervain's Site: R extensor compartment 1 Ultrasound guidance: No Medications: 40 mg methylPREDNISolone acetate 40 mg/mL; 1 mL lidocaine 10 mg/mL (1 %) Today we recommended a steroid injection. Risks of the injection were explained to include infection, flare reaction, skin depigmentation, dimpling, temporary elevation in blood sugars in patients with diabetes, and possible tendon rupture damage to cartilage with repeated injections. Injection performed with an alcohol and Betadine preparation. us Arnoldo Bonilla MD IN CLINIC/BEDSIDE ORDERAB LES Final Result * SCAN - RADIOLOGY/IMAGING (06/14/2024) Anatomical Region Laterality Modality Other us Provider Scanning Final Result * PSA screen (05/01/2024 9:53 AM ADMINISTRATIVE PROFESSIONAL) PSA 0.4 0.0 - 4.0 ng/mL [facility] - 01 Comment: Kassy ECLIA methodology. According to the [employer], Serum PSA should decrease and remain at undetectable levels after radical prostatectomy. The AUA defines biochemical recurrence as an initial PSA value 0.2 ng/mL or greater followed by a subsequent confirmatory PSA value 0.2 ng/mL or greater. Values obtained with different assay methods or kits cannot be used interchangeably. Results cannot be interpreted as absolute evidence of the presence or absence of malignant disease. Blood 05/01/2024 9:53 AM ADMINISTRATIVE PROFESSIONAL 05/01/2024 Narrative [facility] - 05/02/2024 4:07 AM ADMINISTRATIVE PROFESSIONAL Performed at: - [facility] [address] [id number] Checker And Packer: Gary Hay PhD, Phone: [phone] us Junior Clement NP LAB BLOOD ORDERABLES F inal Result [facility] - 01 from Last 3 Months or Most Recently Relevant to Health Maintenance Insurance MEDICARE [facility] CHOICE PLUS [facility] OPEN [facility]ESS [facility] HMO/PPO Address: [facility] [address] [place] [address] Care Teams Maintenance Shop Laborer Relationship Specialty Start Date End Date Angelo Jackson MD [address] [place] [address] PCP - General Family Practice 06/14/24
--- OUTSIDE RECORDS SUMMARY | 2024-08-03 12:47 | XMS_ITS | Clinical Summary ---
Author Organization [facility] [address] [place] [address] Care Team Providers Care Lightning Rod Installer Name Role Phone Angelo Jackson MD Primary Care Provider [phone] Allergies Active Allergy Reactions Criticality Noted Date Comments 1 Alpha-Gal Unknown Dairy Tolerance (Hcysgihjd-Fholg-5,3- Galactose) Edema,Hives,Itching,R zak,Redness,Swelling, Swollen tongue High 11/09/2021 [...] hearing loss, asymmetrical 018 Tinnitus, bilateral 03/17/2018 Encounters Date Type Department Care Team Description 06/14/2024 9:59 AM UNIX ANALYST - 06/14/2024 11:59 PM UNIX ANALYST Hospital Encounter [facility]) [address] [place] [id number] Discharge Disposition: Discharge to home or self care 06/14/2024 9:10 AM UNIX ANALYST Office Visit [facility] Orthopaedic Surgery [address] Medical Office Building 1 [address] [place] [address] Arnoldo Bonilla MD De Quervain's syndrome (tenosynovitis) (Primary Dx) 06/14/2024 Orders Only JARVIS OS HAND/WRIST Scanning, Provider from Last 3 Months Medical History Medical History Date Comments HL (hearing loss) Tinnitus Social History Tobacco Use Types Packs/Day Years Used Date Smoking Tobacco: Never Sex and Gender Information Value Date Recorded Sex Assigned at Not on file Legal Sex Male 3:33 AM UNIX ANALYST Gender Identity Male 05/20/2020 4:24 PM UNIX ANALYST Sexual Orientation Not on file Obstetrics History Last Filed Vital Signs Vital Sign Reading [...] 12/11/2021 11:03 AM CDT Plan of Treatment Health Maintenance Due Date Last Done Comments Colon Cancer Screening-Colonoscopy 1958 Depression Screening 1958 Fall Risk Assessment 1958 Hepatitis C Screening 1958 DTaP/Tdap/Td Vaccine (1 - Tdap) 1969 Hepatitis B Screening 1976 Pneumococcal vaccine 65+ (1 of 1 - PCV) 2008 Well Visit 65+ 2023 Influenza Vaccine (#1) 2023 , 01/09/2018, 02/09/2017, Additional history exists Prostate Cancer Screening-PSA 05/01/2026, 05/06/2023, 04/01/2022 Zoster Vaccine Completed 05/12/2019, 01/10/2019 Procedures Procedure Name Priority Date/Time Associated Diagnosis Comments XR TRANSFER OF OUTSIDE FILMS Routine 06/14/2024 9:59 AM UNIX ANALYST [place] INJECTION 1 TENDON SHEATH/LIGAMENT APONEUROSIS Routine 06/14/2024 9:10 AM UNIX ANALYST De Quervain's syndrome (tenosynovitis) SCAN - RADIOLOGY/IMAGING 06/14/2024 PSA SCREEN Routine 05/01/2024 9:53 AM UNIX ANALYST Family hx of prostate cancer from Last 3 Months or Most Recently Relevant to Health Maintenance Results * XR Outside Reference (06/14/2024 9:59 AM UNIX ANALYST) Impressions RAD_PACS_[facility] - 06/14/2024 9:59 AM UNIX ANALYST These images are for Reference purposes only and have not been reviewed by [facility] Radiology. There will be no report generated by a [facility] Radiologist. Narrative RAD_PACS[facility] - 06/14/2024 9:59 AM UNIX ANALYST EXAMINATION: Images For Reference Purposes Only us Arnoldo Bonilla MD IMG XR PROCEDURES Final R esult RAD_PACS[facility] * AK INJECTION 1 TENDON SHEATH/LIGAMENT APONEUROSIS (06/14/2024 9:10 AM UNIX ANALYST) Narrative Arnoldo Bonilla MD - 06/14/2024 9:10 AM UNIX ANALYST Arnoldo Bonilla MD 06/14/2024 1:13 PM De [...] Result * PSA screen (05/01/2024 9:53 AM UNIX ANALYST) PSA 0.4 0.0 - 4.0 ng/mL [facility] - Comment: Kassy ECLIA methodology. According to the [place] [employer], Serum PSA should decrease and [...] of malignant disease. Blood 05/01/2024 9:53 AM UNIX ANALYST 05/01/2024 Narrative [facility] - 05/02/2024 4:07 AM UNIX ANALYST Performed at: [address] [id number] Paperhanger Assistant: Gary Hay PhD, Phone: [phone] Junior Clement NP LAB BLOOD ORDERABLES F [facility]al [facility] - from Last 3 Months or Most Recently Relevant to Health Maintenance Insurance MEDICARE [facility] Address: [address] [address] [facility] [place] [address] [facility] [place] [address] [facility] Care Teams Lightning Rod Installer Relationship Specialty Start Date End Date Angelo Jackson MD [address] [place] [address] PCP - General Family Practice 06/14/24
--- OUTSIDE RECORDS SUMMARY | 2024-08-03 12:47 | XMS_ITS | Encounter Summary ---
Author Organization [facility] Address [address] [place] [address] Phone Care Team Providers Care Bench Inspector Name Role Phone Neno Vega MD Primary Care Provider [phone] Tucker Pagan DO Primary Care Provider [phone] Angelo Jackson MD Primary Care Provider [phone] Encounter Details Date Type Department Care Team (Latest Contact Info) Description 01/31/2017 Orders Only [facility] CONVERSION Scanning, Provider Social History Tobacco Use Types Packs/Day Years Used Date Smoking Tobacco: Never Sex and Gender Information Value Date Recorded Sex Assigned at Not on file Legal Sex Male 3:33 AM DIGITAL EDITOR Gender Identity Male 05/20/2020 4:24 PM DIGITAL EDITOR Sexual Orientation Not on file documented as of this encounter Plan of Treatment Not on file documented as of this encounter Procedures Procedure Name Priority Date/Time Associated Diagnosis Comments PULMONARY FUNCTION TEST (PFT) 01/31/2017 1:26 PM CDT documented in this encounter Results * PULMONARY FUNCTION TEST (PFT) (01/31/2017 1:26 PM CDT) Anatomical Region Laterality Modality PFT us Provider Scanning PFT ORDERABLES Final Result documented in this encounter Visit Diagnoses Not on filedocumented in this encounter Care Teams Bench Inspector Relationship Specialty Start Date End Date Neno Vega MD [address] [place] [address] PCP - General 01/21/17 03/02/22 Tucker Pagan DO [address] [place] [address] PCP - General Family Medicine 03/03/22 06/13/24 Angelo Jackson MD [address] [place] [address] PCP - General Family Practice 06/14/24 documented as of this encounter
== END 2024-08-03 12:43 | disposition home or self-care (01) ==
LOC: ANHAUDASC 12:43
PROVIDERS: PCP Family Medicine; Visit Provider Family Medicine
DX: H90.3 Sensorineural hearing loss, bilateral (principal); H93.13 Tinnitus, bilateral; H61.22 Impacted cerumen, left ear
CPT/HCPCS: 92557; 92567; 99199